=== PATIENT | female | born 1960 | race Caucasian/White ===

== ENCOUNTER → 2023-11-05 10:31 | Outpatient (REF) | payer OTHER, SELFPAY | LOC: HWWDC 10:31 | PROVIDERS: ATTENDING PHYSICIAN Student in an Organized Health Care Education/Training Program; FAMILY PHYSICIAN Family Medicine | DX: Z12.31 Encounter for screening mammogram for malignant neoplasm of breast (principal) | CPT/HCPCS: 77063; 77067 ==

== ENCOUNTER → 2024-01-05 13:42 | Outpatient (REF) | payer OTHER, SELFPAY | LOC: WDC 13:42 | PROVIDERS: ATTENDING PHYSICIAN Student in an Organized Health Care Education/Training Program; FAMILY PHYSICIAN Family Medicine | DX: R92.2 Inconclusive mammogram (principal) | CPT/HCPCS: 76641 ==

== ENCOUNTER → 2024-06-22 13:41 | Outpatient (REF) | payer OTHER, SELFPAY | LOC: WDC 13:41 | PROVIDERS: ATTENDING PHYSICIAN Student in an Organized Health Care Education/Training Program; FAMILY PHYSICIAN Family Medicine | DX: R92.8 Other abnormal and inconclusive findings on diagnostic imaging of breast (principal) | CPT/HCPCS: 76642 ==

== ENCOUNTER → 2024-12-27 08:51 | Outpatient (REF) | payer OTHER, SELFPAY | LOC: HWWDC 08:51 | PROVIDERS: ATTENDING PHYSICIAN Student in an Organized Health Care Education/Training Program; FAMILY PHYSICIAN Family Medicine | DX: Z12.31 Encounter for screening mammogram for malignant neoplasm of breast (principal) | CPT/HCPCS: 77063; 77067 ==

== ENCOUNTER → 2025-01-02 08:44 | Outpatient (REF) | payer OTHER, SELFPAY | LOC: WDC 08:44 | PROVIDERS: ATTENDING PHYSICIAN Student in an Organized Health Care Education/Training Program; FAMILY PHYSICIAN Family Medicine | DX: R92.8 Other abnormal and inconclusive findings on diagnostic imaging of breast (principal); R92.30 Dense breasts, unspecified | CPT/HCPCS: 76641 ==

== ENCOUNTER → 2025-06-14 09:21 | Outpatient (REF) | payer OTHER, SELFPAY | LOC: PAVMRI 09:21 | PROVIDERS: ATTENDING PHYSICIAN Specialist; FAMILY PHYSICIAN Family Medicine | DX: M54.12 Radiculopathy, cervical region (principal) | CPT/HCPCS: 72141 ==